=== PATIENT | female | born 1950 | race Caucasian/White ===

== ENCOUNTER → 2023-07-23 | Outpatient (CLI) | payer MEDICARE, OTHER ==
[~2023-07-23] MED LIST: ALTACE5 MG PO; BP MED; BYETTA; FUROSEMIDE; LEVOTHYROXINE PO; METFORMIN; PYRIDIUM 100MG100 MG PO; SEPTRA DS 8001 TAB PO
== END ==
LOC: COL.RAD 12:45
DX: R10.11 Right upper quadrant pain (principal)